=== PATIENT | male | born 1990 | race Hispanic/Latino ===

== ENCOUNTER 2020-03-17 13:00 | Emergency (ER) | payer SELFPAY ==
[~2020-03-17] VITALS: Ht 170.2 cm; Wt 78.0 kg
[2020-03-17] MEDS ORDERED: MOTRIN800 MG PO (14:11)
== END 2020-03-17 14:20 | disposition home or self-care (01) ==
LOC: FSED 13:28
DX: S43.401A Unspecified sprain of right shoulder joint, initial encounter (principal); Y93.66 Activity, soccer; Y92.322 Soccer field as the place of occurrence of the external cause
CPT/HCPCS: 99283